=== PATIENT | female | born 1960 | race Caucasian/White ===

== ENCOUNTER 2017-09-20 01:19 | Emergency (ER) | payer SELFPAY ==
[~2017-09-20] VITALS: Ht 162.6 cm; Wt 85.0 kg
[~2017-09-20 01:19] MED LIST: CARD1TAB OR; CELE200 PO; HYZA100T2 PO; NEXI40CA PO
[2017-09-20] MEDS ORDERED: LACTATED RINGER'S 1000 ML INJ 1,000 ML IV SCH (01:59)
[2017-09-20] MEDS ORDERED: ceFAZolin 2 GM PREMIX 50 ML IV ONE (02:00)
[2017-09-20] MEDS ORDERED: DIPHTH/TETANUS/ACEL PERTUSSIS (BOOSTER) 0.5 ML VIAL/PFS IM ONE ×3 (02:00→02:27)
--- NOTE | 2017-09-20 02:11 | PD ---
HPI Chief Complaint: Fall Time Seen by Provider: 01:53 Travel History International Travel<30 days: No Contact w/Intl Traveler<30days: No History of Present Illness HPI The patient is a 57 year old female who presents to the [facility] emergency department with a history of reportedly falling in her backyard sometime earlier tonight. She cannot recall exactly how she fell. She reports that she has been heavily drinking alcohol this evening. She is not sure whether she had a loss of consciousness. She reports that she realized she was bleeding from her head and unfortunately was unable to stop it, therefore she called ambulance services. She denies taking any blood thinners. She reports that she does have a history of hypertension and is on blood pressure medication for this. On review of systems otherwise, the patient denies having any neck pain, numbness or tingling to her extremities, or weakness of her extremities. She denies having any chest pain, chest pressure, or shortness of breath. She denies having any abdominal pain. She denies having any pain in her extremities. She reports that she does have chronic knee pain on the right side. Otherwise on review of systems, the patient denies having any recent fevers, cough or congestion, vomiting, diarrhea, urinary symptoms, or other neurologic symptoms. [facility] Past Medical History Narrative Medical The patient's past medical history is significant for hypertension, daily alcohol use, tobacco abuse, arthritis, acid reflux Arthritis: Yes (DOES NOT TAKE MEDS) Asthma: Yes Heart Rhythm Problems: Yes Cardiovascular Problems: Yes (HEART MURMUR) Diminished Hearing: No GERD: Yes Hypertension: Yes Immunizations Current: Yes Past Surgical History Narrative Surgical The patient's past surgical history is significant for an appendectomy. Appendectomy: Yes Social History Alcohol Use: Yes (2 liquor drinks per day) Tobacco Use: Yes (5 cigarettes per day) Substance Use: No Allergies-Medications (Allergen,Severity, Reaction): Coded Allergies: No Known Allergies (Verified Adverse Reaction, Unknown, 09/20/17) Reported Meds & Prescriptions Reported Meds & Active Scripts Active Review of Systems Except as stated in HPI: all other systems reviewed are Neg General / Constitutional: No: Fever Eyes: No: Visual changes HENT: No: Headaches, Neck Stiffness, Neck Pain Cardiovascular: No: Chest Pain or Discomfort Respiratory: No: Shortness of Breath Gastrointestinal: No: Abdominal Pain Genitourinary: No: Dysuria Musculoskeletal: No: Pain Skin: No Rash Neurologic: No: Weakness, Focal Abnormalities, Change in Mentation, Slurred Speech, Sensory Disturbance Psychiatric: No: Depression Endocrine: No: Polydipsia Hematologic/Lymphatic: No: Easy Bruising Physical Exam Narrative General: The patient is a well-developed well-nourished female in no acute distress. The patient is brought in on a back board in full c-spine immobilization by emergency services. Head and Neck exam: Head is normocephalic, evidence of trauma with a pressure bandage in place that is soaked with blood. The patient's pressure bandage was removed and the patient was noted to have a linear laceration around the right side of the upper head just past her hairline. Some continual oozing was noted. A pressure bandage was reapplied. No facial bone tenderness or increased facial bone mobility noted on palpation. Eyes: EOMI, pupils are equal round and reactive to light. Nose: Midline septum with pink mucous membranes Mouth: Dentition unremarkable. Moist mucus membranes. Posterior oropharynx is not erythematous. No tonsillar hypertrophy. Uvula midline. Airway patent. Neck: The patient is immobilized in a cervical collar. No tracheal deviation. The trachea appears midline. Cardiovascular: Regular rate and rhythm without murmurs, gallops, or rubs. No pulse deficit to the extremities. Lungs: Clear to auscultation bilaterally. No wheezes, rhonchi, or rales. No chest wall tenderness to palpation. No erythema or ecchymosis noted. No crepitus , step off, or flail segment noted. Abdomen: Soft, without tenderness to palpation in all 4 quadrants of the abdomen. No guarding, rebound, or rigidity. No erythema or ecchymosis noted. Extremities: No instability or pain noted on pelvic rock. No clubbing, cyanosis , or edema. 2+ pulses in all 4 extremities. No extremity tenderness or deformity noted on palpation or passive/ active range of motion. Back: The patient was log rolled off of the back board. No spinous process tenderness to palpation. No stepoff or crepitus noted. No costovertebral angle tenderness to palpation. No erythema or ecchymosis. Neurologic Exam: Cranial nerves 2-12 were intact on exam. Strength is 5/5 in all 4 extremities. No sensory deficits noted. Skin Exam: No rash noted. Intact skin that is warm and dry. Data Data Last Documented VS Vital Signs Date Time Temp Pulse Resp B/P (MAP) Pulse Ox O2 Delivery O2 Flow Rate FiO2 09/20/17 02:30 Room Air 09/20/17 02:28 98.0 84 18 167/84 (111) 99 Orders Orders Complete Blood Count With Diff (09/20/17 01:59) Prothrombin Time / Inr (Pt) (09/20/17 01:59) Act Partial Throm Time (Ptt) (09/20/17 01:59) Fibrinogen (09/20/17 01:59) Alcohol (Ethanol) (09/20/17 01:59) Urinalysis - C+S If Indicated (09/20/17 01:59) Chest, Single Ap (09/20/17 01:59) Pelvis, Ap Only (Routine) (09/20/17 01:59) Ct Brain W/O Iv Contrast(Rout) (09/20/17 01:59) Ct Cerv Spine W/O Contrast (09/20/17 01:59) Ct Facial Bones W/O Iv Cont (09/20/17 01:59) Electrocardiogram (09/20/17 01:59) Iv Access Insert/Monitor (09/20/17 01:59) Ecg Monitoring (09/20/17 01:59) Oximetry (09/20/17 01:59) Cefazolin 2 Gm Premix (Ancef 2 Gm Premix (09/20/17 02:00) Fadv-Dpy-Srikss (Booster) Inj (Boostrix (09/20/17 02:00) Lactated Ringer's 1000 Ml Inj (Lr 1000 M (09/20/17 01:59) Drug Screen, Random Urine (09/20/17 01:59) Comprehensive Metabolic Panel (09/20/17 01:59) Magnesium (Mg) (09/20/17 01:59) Type And Screen (09/20/17 01:59) Hjkn-Ssi-Gsqzcy (Booster) Inj (Boostrix (09/20/17 02:15) Rhgr-Ovx-[place] (Booster) Inj (Boostrix (09/20/17 02:27) Labs Laboratory Tests Test 09/20/17 02:10 White Blood Count 7.0 TH/MM3 Red Blood Count 4.11 MIL/MM3 Hemoglobin 14.3 GM/DL Hematocrit 40.6 % Mean Corpuscular Volume 98.6 FL Mean Corpuscular Hemoglobin 34.7 PG Mean Corpuscular Hemoglobin Concent 35.2 % Red Cell Distribution Width 13.0 % Platelet Count 181 TH/MM3 Mean Platelet Volume 9.1 FL Neutrophils (%) (Auto) 60.6 % Lymphocytes (%) (Auto) 29.5 % Monocytes (%) (Auto) 5.5 % Eosinophils (%) (Auto) 3.4 % Basophils (%) (Auto) 1.0 % Neutrophils # (Auto) 4.2 TH/MM3 Lymphocytes # (Auto) 2.1 TH/MM3 Monocytes # (Auto) 0.4 TH/MM3 Eosinophils # (Auto) 0.2 TH/MM3 Basophils # (Auto) 0.1 TH/MM3 CBC Comment DIFF FINAL Differential Comment Prothrombin Time 11.4 SEC Prothromb Time International Ratio 1.1 RATIO Activated Partial Thromboplast Time 26.0 SEC Fibrinogen 269 mg/dL Blood Urea Nitrogen 24 MG/DL Creatinine 1.19 MG/DL Random Glucose 97 MG/DL Total Protein 7.5 GM/DL Albumin 3.9 GM/DL Calcium Level 8.4 MG/DL Magnesium Level 2.1 MG/DL Alkaline Phosphatase 73 U/L Aspartate Amino Transf (AST/SGOT) 22 U/L Alanine Aminotransferase (ALT/SGPT) 26 U/L Total Bilirubin 0.3 MG/DL Sodium Level 143 MEQ/L Potassium Level 3.9 MEQ/L Chloride Level 111 MEQ/L Carbon Dioxide Level 23.8 MEQ/L Anion Gap 8 MEQ/L Estimat Glomerular Filtration Rate 46 ML/MIN Ethyl Alcohol Level 204 MG/DL [facility] Medical Decision Making Medical Screen Exam Complete: Yes Emergency Medical Condition: Yes Medical Record Reviewed: Yes Interpretation(s) Last Impressions Pelvis X-Ray 09/20/17158 Signed Impressions: Service Date/Time: Wednesday, September 20, 2017 02:22 - CONCLUSION: No acute abnormality is identified. Les Souza MD Maxillofacial CT 09/20/17158 Signed Impressions: Service Date/Time: Wednesday, September 20, 2017 02:30 - CONCLUSION: No maxillofacial fracture is identified. Les Souza MD Head CT 09/20/17158 Signed Impressions: Service Date/Time: Wednesday, September 20, 2017 02:30 - CONCLUSION: Right frontal scalp soft tissue swelling and likely laceration. No skull fracture or acute intracranial abnormality is identified. Les Souza MD Chest X-Ray 09/20/179 Signed Impressions: Service Date/Time: Wednesday, September 20, 2017 02:12 - CONCLUSION: No acute cardiopulmonary abnormality is identified. Les Souza MD Cervical Spine CT 09/20/179 Signed Impressions: Service Date/Time: Wednesday, September 20, 2017 02:30 - CONCLUSION: 1. No acute cervical spine abnormality is identified. 2. 2 mm of anterolisthesis of C5 on C6 likely secondary to facet arthrosis. There is multilevel degenerative disc disease. Les Souza MD Differential Diagnosis Intracranial hemorrhage, versus concussion, versus scalp hematoma, versus scalp laceration, versus cervical spine injury Narrative Course During the course of the patient's emergency department visit, the patient's history, examination, and differential diagnosis were reviewed with the patient. The patient was placed on a quality assurance monitor with oximetry and frequent blood pressure monitoring. The patient had IV access obtained and blood work sent for analysis. The patient had an EKG done on arrival that shows a sinus rhythm heart rate of 65, QRS duration 83 ms, QTC [address] segment elevation is noted. T waves are inverted in V4, V5, V6, and aVL. The patient was initially provided an update to her tetanus, Ancef 2 g IV, lactated Ringer's 1 L IV fluid bolus. The patient's laboratory studies were reviewed and remarkable for a white count of 7, hemoglobin 14.3, platelets 181 with a normal differential, CMP is remarkable for chloride of 111, BUN 24, creatinine 1.19, GFR 46, calcium 8.4, PT 11.4, PTT 26, fibrinogen 269. Alcohol level is 204. Radiology studies were reviewed and remarkable for a chest x-ray and pelvis x- ray that showed no acute abnormality. CT scan of the brain shows no acute abnormality other than right frontal scalp swelling. CT scan of the C-spine shows no acute abnormality. 2 mm anterolisthesis of C5 on C6 likely secondary to facet arthrosis with multilevel degenerative disc disease. CT scan of the facial bones showed no acute abnormality. The patient was observed in the emergency department for improvement in her mentation and ability to walk without assistance. The patient will be discharged home to follow-up with her primary care physician. The patient was given a prescription for Keflex at discharge for prophylaxis of wound infection. The patient is resting comfortably and feels better, is alert and in no distress. The patient's results and examination findings were discussed with the patient. The repeat examination is unremarkable and benign. The history, exam, diagnostic testing, and current condition do not suggest any significant pathology to warrant further testing, continued ED treatment, admission, or surgical evaluation at this point. The vital signs have been stable. The patient does not have uncontrollable pain, intractable vomiting, or other significant symptoms. The patient's condition is stable and appropriate for discharge. The patient will pursue further outpatient evaluation with a primary care physician or other designated or consulting physician as indicated in the discharge instructions. The patient expressed understanding and was agreeable with this plan. Diagnosis Primary Impression: Head injury Qualified Codes: S09.90XA - Unspecified injury of head, initial encounter Additional Impression: Scalp laceration Qualified Codes: S01.01XA - Laceration without foreign body of scalp, initial encounter Referrals: Primary Care Physician 2 days Patient Instructions: General Instructions, Head Injury (ED), Laceration (ED), Staple Care (ED) Med/Other Pt SpecificInfo: Prescription(s) given Scripts Cephalexin (Keflex) 500 Mg Cap 500 MG PO Q8H for Infection, #21 CAP 0 Refills Prov: Odalys Ng MD 09/20/17 Disposition: 01 DISCHARGE HOME Condition: Stable Odalys Ng MD Sep 20, 2017 02:11
[2017-09-20 02:19] LABS: AUTOMATED NEUTROPHIL # 4.2 TH/MM3 (1.8-7.7); BASOPHIL # 0.1 TH/MM3 (0-0.2); EOSINOPHIL # 0.2 TH/MM3 (0-0.4); EOSINOPHIL % 3.4 % (0.0-4.0); HEMATOCRIT 40.6 % (35.0-46.0); HEMOGLOBIN 14.3 GM/DL (11.6-15.3); LYMPH % 29.5 % (9.0-44.0); LYMPHOCYTE # 2.1 TH/MM3 (1.0-4.8); MEAN CELL VOLUME 98.6 FL (80.0-100.0); MEAN CORPUSCULAR HEMOGLOBIN 34.7 PG (27.0-34.0); MEAN CORPUSCULAR HGB CONC 35.2 % (32.0-36.0); MEAN PLATELET VOLUME 9.1 FL (7.0-11.0); MONO % 5.5 % (0.0-8.0); MONOCYTE # 0.4 TH/MM3 (0-0.9); NEUT % 60.6 % (16.0-70.0); PLATELET COUNT 181 TH/MM3 (150-450); RED BLOOD COUNT 4.11 MIL/MM3 (4.00-5.30)
[2017-09-20 02:28] VITALS: BP 167/84; PULSE 84; RESP 18; TEMP 98; O2SAT 99
[2017-09-20 02:40] LABS: ALBUMIN 3.9 GM/DL (3.4-5.0); AST (GOT) 22 U/L (15-37); BICARBONATE 23.8 MEQ/L (21.0-32.0); BLOOD UREA NITROGEN 24 MG/DL (7-18); CALCIUM 8.4 MG/DL (8.5-10.1); CHLORIDE 111 MEQ/L (98-107); CREATININE 1.19 MG/DL (0.50-1.00); GLOMERULAR FILTRATION RATE 46 ML/MIN (>89); GLUCOSE,RANDOM 97 MG/DL (74-106); MAGNESIUM 2.1 MG/DL (1.5-2.5); SODIUM (NA) 143 MEQ/L (136-145)
--- NOTE | 2017-09-20 02:41 | RADRPT ---
EXAM DATE/TIME: 09/20/2017 02:12 [facility] COMPARISON: No previous studies available for comparison. INDICATIONS : Fall, trauma. MEDICAL HISTORY : None. SURGICAL HISTORY : None. ENCOUNTER: Initial ACUITY: 1 day PAIN SCORE: 0/10 LOCATION: Bilateral chest FINDINGS: Portable AP view of the chest demonstrates a normal-sized cardiac silhouette. No effusion, consolidat ion, or pneumothorax is visualized. The bones and soft tissues demonstrate no acute abnormality. Ther e is mild dextroscoliosis of the thoracic spine. CONCLUSION: No acute cardiopulmonary abnormality is identified. Les Souza MD on September 20, 2017 at 2:39 Board Certified Radiologist. This report was verified electronically.
--- NOTE | 2017-09-20 02:42 | RADRPT ---
EXAM DATE/TIME: 09/20/2017 02:22 [facility] COMPARISON: No previous studies available for comparison. INDICATIONS : Fall, trauma. MEDICAL HISTORY : None. SURGICAL HISTORY : None. ENCOUNTER: Initial ACUITY: 1 day PAIN SCORE: 0/10 LOCATION: Bilateral pelvis FINDINGS: Single AP view of the pelvis demonstrates no fracture or dislocation. Mineralization is within normal limits. There is no significant arthropathy. No soft tissue abnormality or radiopaque foreign body i s identified. CONCLUSION: No acute abnormality is identified. Les Souza MD on September 20, 2017 at 2:39 Board Certified Radiologist. This report was verified electronically.
[2017-09-20 02:43] LABS: ALKALINE PHOSPHATASE 73 U/L (45-117); ALT (GPT) 26 U/L (10-53); TOTAL BILIRUBIN ADULT 0.3 MG/DL (0.2-1.0); TOTAL PROTEIN 7.5 GM/DL (6.4-8.2)
--- NOTE | 2017-09-20 02:44 | RADRPT ---
EXAM DATE/TIME: 09/20/2017 02:30 [facility] COMPARISON: No previous studies available for comparison. INDICATIONS : Trauma, fall. Laceration to forehead. RADIATION DOSE: 66.34 CTDIvol (mGy) MEDICAL HISTORY : Hypertension. Cardiovascular disease SURGICAL HISTORY : None. ENCOUNTER: Initial ACUITY: 1 day PAIN SCALE: 8/10 LOCATION: cranial TECHNIQUE: Multiple contiguous axial images were obtained of the head. Using automated exposure control and adj ustment of the mA and/or kV according to patient size, radiation dose was kept as low as reasonably a chievable to obtain optimal diagnostic quality images. DICOM format image data is available electro nically for review and comparison. FINDINGS: CEREBRUM: There is mild atrophy. Ventricles are normal. No evidence of midline shift, mass lesion, hemorrhage or acute infarction. No extra-axial fluid collections are seen. POSTERIOR FOSSA: The cerebellum and brainstem are intact. The 4th ventricle is midline. The cerebellopontine angle i s unremarkable. EXTRACRANIAL: There is a right frontal scalp soft tissue swelling with laceration. SKULL: The calvaria is intact. No evidence of skull fracture. CONCLUSION: Right frontal scalp soft tissue swelling and likely laceration. No skull fracture or acute intracrani al abnormality is identified. Les Souza MD on September 20, 2017 at 2:40 Board Certified Radiologist. This report was verified electronically.
[2017-09-20 02:45] LABS: INTERNATIONAL NORMALIZED RATIO 1.1 RATIO; PROTHROMBIN TIME - PATIENT 11.4 SEC (9.8-11.6)
--- NOTE | 2017-09-20 02:48 | RADRPT ---
EXAM DATE/TIME: 09/20/2017 02:30 [facility] COMPARISON: No previous studies available for comparison. INDICATIONS : Trauma, fall. Laceration to forehead. RADIATION DOSE: 32.24 CTDIvol (mGy) MEDICAL HISTORY : Hypertension. Cardiovascular disease SURGICAL HISTORY : None. ENCOUNTER: Initial ACUITY: 1 day PAIN SCALE: 0/10 LOCATION: neck TECHNIQUE: Volumetric scanning of the cervical spine was performed. Multiplanar reconstructions in the sagittal, coronal and oblique axial planes were performed. Using automated exposure control and adjustment o f the mA and/or kV according to patient size, radiation dose was kept as low as reasonably achievable to obtain optimal diagnostic quality images. DICOM format image data is available electronically f or review and comparison. FINDINGS: There is 2 mm of anterolisthesis of C5 on C6 with bilateral facet arthrosis. The atlantoaxial relatio nship is within normal limits. There is no prevertebral soft tissue swelling present. No fracture or dislocation is identified. The there is degenerative disc disease at C3-C4, C4-C5, and C6-C7. The visualized portions of the posterior fossa, paraspinous soft tissues, and upper lung zones demons trate no acute abnormality. CONCLUSION: 1. No acute cervical spine abnormality is identified. 2. 2 mm of anterolisthesis of C5 on C6 likely secondary to facet arthrosis. There is multilevel degen erative disc disease. Les Souza MD on September 20, 2017 at 2:43 Board Certified Radiologist. This report was verified electronically.
--- NOTE | 2017-09-20 02:51 | RADRPT ---
EXAM DATE/TIME: 09/20/2017 02:30 [facility] COMPARISON: No previous studies available for comparison. INDICATIONS : Trauma, fall. Laceration to forehead. RADIATION DOSE: 26.35 CTDIvol (mGy) MEDICAL HISTORY : Hypertension. Cardiovascular disease SURGICAL HISTORY : None. ENCOUNTER: Initial ACUITY: 1 day PAIN SCORE: 5/10 LOCATION: facial TECHNIQUE: Volumetric scanning of the facial bones was performed. Using automated exposure control and adjustme nt of the mA and/or kV according to patient size, radiation dose was kept as low as reasonably achiev able to obtain optimal diagnostic quality images. DICOM format image data is available electronicall y for review and comparison. FINDINGS: ORBITS: The orbital structures are intact. The retroconal structures have a normal configuration. No radiop aque foreign bodies are seen. The lenses are normally located. NASAL BONE: The nasal bones and maxillary spine are intact. ZYGOMATIC ARCHES: Symmetric without evidence of fracture. SINUSES: There is mild mucoperiosteal thickening within the maxillary antra. No air-fluid levels seen. NASAL CAVITY: The nasal septum is intact and midline. The lacrimal ducts are intact. SOFT TISSUES: No radiopaque foreign bodies seen. No soft-tissue swelling is seen. INTRACRANIAL: No acute intracranial abnormality is seen. OTHER: The mandible and pterygoid plates are intact. CONCLUSION: No maxillofacial fracture is identified. Les Souza MD on September 20, 2017 at 2:46 Board Certified Radiologist. This report was verified electronically.
--- NOTE | 2017-09-20 03:58 | PD ---
Physical Exam Date Seen by Provider: Sep 20, 2017 Time Seen by Provider: 03:56 Narrative Skin: Patient has a 4 cm laceration to the anterior scalp Data Data Last Documented VS Vital Signs Date Time Temp Pulse Resp B/P (MAP) Pulse Ox O2 Delivery O2 Flow Rate FiO2 09/20/17 02:30 Room Air 09/20/17 02:28 98.0 84 18 167/84 (111) 99 Orders Orders Complete Blood Count With Diff (09/20/17 01:59) Prothrombin Time / Inr (Pt) (09/20/17 01:59) Act Partial Throm Time (Ptt) (09/20/17 01:59) Fibrinogen (09/20/17 01:59) Alcohol (Ethanol) (09/20/17 01:59) Urinalysis - C+S If Indicated (09/20/17 01:59) Chest, Single Ap (09/20/17 01:59) Pelvis, Ap Only (Routine) (09/20/17 01:59) Ct Brain W/O Iv Contrast(Rout) (09/20/17 01:59) Ct Cerv Spine W/O Contrast (09/20/17 01:59) Ct Facial Bones W/O Iv Cont (09/20/17 01:59) Electrocardiogram (09/20/17 01:59) Iv Access Insert/Monitor (09/20/17 01:59) Ecg Monitoring (09/20/17 01:59) Oximetry (09/20/17 01:59) Cefazolin 2 Gm Premix (Ancef 2 Gm Premix (09/20/17 02:00) Aaux-Cqo-Rvpvni (Booster) Inj (Boostrix (09/20/17 02:00) Lactated Ringer's 1000 Ml Inj (Lr 1000 M (09/20/17 01:59) Drug Screen, Random Urine (09/20/17 01:59) Comprehensive Metabolic Panel (09/20/17 01:59) Magnesium (Mg) (09/20/17 01:59) Type And Screen (09/20/17 01:59) Ksxs-Csg-Vlehly (Booster) Inj (Boostrix (09/20/17 02:15) Utbu-Evl-Dpozxp (Booster) Inj (Boostrix (09/20/17 02:27) Labs Laboratory Tests Test 09/20/17 02:10 White Blood Count 7.0 TH/MM3 Red Blood Count 4.11 MIL/MM3 Hemoglobin 14.3 GM/DL Hematocrit 40.6 % Mean Corpuscular Volume 98.6 FL Mean Corpuscular Hemoglobin 34.7 PG Mean Corpuscular Hemoglobin Concent 35.2 % Red Cell Distribution Width 13.0 % Platelet Count 181 TH/MM3 Mean Platelet Volume 9.1 FL Neutrophils (%) (Auto) 60.6 % Lymphocytes (%) (Auto) 29.5 % Monocytes (%) (Auto) 5.5 % Eosinophils (%) (Auto) 3.4 % Basophils (%) (Auto) 1.0 % Neutrophils # (Auto) 4.2 TH/MM3 Lymphocytes # (Auto) 2.1 TH/MM3 Monocytes # (Auto) 0.4 TH/MM3 Eosinophils # (Auto) 0.2 TH/MM3 Basophils # (Auto) 0.1 TH/MM3 CBC Comment DIFF FINAL Differential Comment Prothrombin Time 11.4 SEC Prothromb Time International Ratio 1.1 RATIO Activated Partial Thromboplast Time 26.0 SEC Fibrinogen 269 mg/dL Blood Urea Nitrogen 24 MG/DL Creatinine 1.19 MG/DL Random Glucose 97 MG/DL Total Protein 7.5 GM/DL Albumin 3.9 GM/DL Calcium Level 8.4 MG/DL Magnesium Level 2.1 MG/DL Alkaline Phosphatase 73 U/L Aspartate Amino Transf (AST/SGOT) 22 U/L Alanine Aminotransferase (ALT/SGPT) 26 U/L Total Bilirubin 0.3 MG/DL Sodium Level 143 MEQ/L Potassium Level 3.9 MEQ/L Chloride Level 111 MEQ/L Carbon Dioxide Level 23.8 MEQ/L Anion Gap 8 MEQ/L Estimat Glomerular Filtration Rate 46 ML/MIN Ethyl Alcohol Level 204 MG/DL [facility] Medical Record Reviewed: Yes Supervised Visit with MARIE: Yes Interpretation(s) Last 24 hours Impressions Pelvis X-Ray 09/20/17158 Signed Impressions: Service Date/Time: Wednesday, September 20, 2017 02:22 - CONCLUSION: No acute abnormality is identified. Les Souza MD Maxillofacial CT 09/20/17158 Signed Impressions: Service Date/Time: Wednesday, September 20, 2017 02:30 - CONCLUSION: No maxillofacial fracture is identified. Les Souza MD Head CT 09/20/17158 Signed Impressions: Service Date/Time: Wednesday, September 20, 2017 02:30 - CONCLUSION: Right frontal scalp soft tissue swelling and likely laceration. No skull fracture or acute intracranial abnormality is identified. Les Souza MD Chest X-Ray 09/20/179 Signed Impressions: Service Date/Time: Wednesday, September 20, 2017 02:12 - CONCLUSION: No acute cardiopulmonary abnormality is identified. Les Souza MD Cervical Spine CT 09/20/179 Signed Impressions: Service Date/Time: Wednesday, September 20, 2017 02:30 - CONCLUSION: 1. No acute cervical spine abnormality is identified. 2. 2 mm of anterolisthesis of C5 on C6 likely secondary to facet arthrosis. There is multilevel degenerative disc disease. Les Souza MD Differential Diagnosis MDM: High Differential diagnoses: Fracture, sprain, strain, dislocation, contusion, neurovascular injury Narrative Course Patient's lacerations closed with mark Procedures Procedure Narrative LACERATION LOCATION: Anterior scalp LENGTH: 4 cm NUMBER OF STITCHES/MARK: 6 REPAIR: The area of the laceration was prepped with Betadine and sterilely draped. the wound was copiously irrigated and explored without evidence of foreign body, tendon injury or neurovascular injury. The wound was closed using mark. This was a simple single layer repair. A sterile dressing was applied. The patient was advised to keep the dressing clean and dry. Patient tolerated the procedure well. Diagnosis Primary Impression: Scalp laceration Patient Instructions: General Instructions Additional Instruction: Rest. Head precautions Elevation. Tylenol for pain. Daily wound care with soap, water, Neosporin. Sutures out in 9 days. Return to the ER if any problems. Med/Other Pt SpecificInfo: Wound Care Condition: Stable Kody Pelletier Sep 20, 2017 03:58
[2017-09-20] MEDS ORDERED: CEPH-460 PO (06:24)
[2017-09-20 07:20] VITALS: BP 158/68
--- NOTE | 2017-09-20 10:49 | EKG ---
Date Performed: 09/20/2017 Time Performed: 01:49:04 PTAGE: 57 years EKG: Sinus rhythm LEFT VENTRICULAR HYPERTROPHY AND ST-T CHANGE ABNORMAL ECG NO PREVIOUS TRACING DOCTOR: Pasquale Wood Interpretating Date/Time 09/20/2017 10:48:25
== END 2017-09-20 07:20 | disposition home or self-care (01) ==
LOC: NEPC 01:19
DX: S01.01XA Laceration without foreign body of scalp, initial encounter (principal); I10 Essential (primary) hypertension; I25.10 Atherosclerotic heart disease of native coronary artery without angina pectoris; J45.909 Unspecified asthma, uncomplicated; M19.90 Unspecified osteoarthritis, unspecified site; F17.210 Nicotine dependence, cigarettes, uncomplicated; R94.31 Abnormal electrocardiogram [ECG] [EKG]; W19.XXXA Unspecified fall, initial encounter; Y90.7 Blood alcohol level of 200-239 mg/100 ml; Y92.007 Garden or yard of unspecified non-institutional (private) residence as the place of occurrence of the external cause; Z23 Encounter for immunization; Z72.89 Other problems related to lifestyle
CPT/HCPCS: 12002; 70450; 70486; 71045; 72125; 72170; 80053; 80307; 83735; 85025; 85384; 85610; 85730; 86850; 86900; 86901; 90471; 90715; 93005; 96365; 99285; J0690; J7120